=== PATIENT | female | born 1965 | race Two or more races ===

== ENCOUNTER 2025-04-18 15:35 | Emergency (ER) | payer MEDICAID, OTHER ==
[~2025-04-18] VITALS: Ht 157.5 cm; Wt 78.5 kg
--- NOTE | 2025-04-18 16:30 | ED.PDOC ---
Back pain HPI HPI Comments 60 y/o F, with PMHx of HTN and DM presents to the ED for CC musculoskeletal pain. Patient reports, to have been experiencing right leg pain that "shoots" up into her left lumbar region x3days. Patient relays, further associated symptoms of palpitations. Patient denies any prior cardiac history, bending, lifting, or trauma. No other symptoms or modifying factors are present at this time. Chief Complaint: Palpitations Time Seen by MD: 16:20 Reviewed Notes: Nurses Notes, Medications, Allergies Allergies: Coded Allergies: NO KNOWN ALLERGIES (Unverified , 04/18/25) Information Source: Patient Mode of Arrival: Ambulatory Timing: Days Duration: Since onset Location of Back pain: (L) Lumbar Severity: Moderate Prehospital treatment: None Quality: Other (shooting) Onset: Spontaneous Modifying Factors: Nothing Associated signs and symptoms: None Past Medical History PAST MEDICAL HISTORY: Asthma, DM Surgical History: Denies all surgeries CHAIRMAN AND CHIEF EXECUTIVE OFFICER History: Denies all CHAIRMAN AND CHIEF EXECUTIVE OFFICER Hx Family History Family History: Unknown Social History Smoker: Non-Smoker Alcohol: Denies ETOH Use Drugs: Denies Drug Use Lives In: Home Constitutional: denies: chills, diaphoresis, fatigue, fever, malaise, sweats, weakness, others EENTM: denies: blurred vision, double vision, ear bleeding, ear discharge, ear drainage, ear pain, ear ringing, eye pain, eye redness, hearing loss, mouth pain, mouth swelling, nasal discharge, nose bleeding, nose congestion, nose pain, photophobia, tearing, throat pain, throat swelling, voice changes, others Respiratory: denies: cough, hemoptysis, orthopnea, SOB at rest, shortness of breath, SOB with excertion, stridor, wheezing, others Cardiovascular: denies: chest pain, dizzy spells, diaphoresis, Dyspnea on exertion, edema, irregular heart beat, left arm pain, lightheadedness, palpitations, PND, syncope, others Gastrointestinal: denies: abdomen distended, abdominal pain, blood streaked bowels, constipated, diarrhea, dysphagia, difficulty swallowing, hematemesis, melena, nausea, poor appetite, poor fluid intake, rectal bleeding, rectal pain, vomiting, others Genitourinary: denies: abnormal vagina bleeding, burning, dyspareunia, dysuria, flank pain, frequency, hematuria, incontinence, pain, , vagina discharge, urgency, others Neurological: denies: dizziness, fainting, headache, left sided numbness, left sided weakness, numbness, paresthesia, pre-existing deficit, right sided numbness, right sided weakness, seizure, speech problems, tingling, tremors, weakness, others Musculoskeletal: reports: back pain, others (left-leg pain); denies: gout, joint pain, joint swelling, muscle pain, muscle stiffness, neck pain Integumetry: denies: bruises, change in color, change in hair/nails, dryness, laceration, lesions, lumps, rash, wounds, others Allergic/Immunocompromised: denies: Difficulty Healing, Frequent Infections, Hives, Itching, others Hematologic/Lymphatic: denies: anemia, blood clots, easy bleeding, easy bruising, swollen glands, others Endocrine: denies: excessive hunger, excessive sweating, excessive thirst, excessive urination, flushing, intolerance to cold, intolerance to heat, unexplained weight gain, unexplained weight loss, others Psychiatric: denies: anxiety, bipolar disorder, depression, hopeless, panic disorder, schizophrenia, sleepless, suicidal, others All Other Systems: Reviewed and Negative Physical Exam General Appearance: No Apparent Distress, Normal HEENT: Normal ENT Inspection, Pharynx Normal Neck: Full Range of Motion, Non-Tender, Normal, Normal Inspection Respiratory: Chest Non-Tender, Lungs Clear, No Accessory Muscle Use, No Respiratory Distress, Normal Breath Sounds Cardiovascular: No Edema, No Murmur, No Gallop, Normal Peripheral Pulses, Regular Rate/Rhythm Breast Exam: Deferred Gastrointestinal: No Organomegaly, Non Tender, No Pulsatile Mass, Normal Bowel Sounds, Soft Genitalia: Deferred Pelvic: Deferred Rectal: Deferred Extremities: No calf tenderness, Normal capillary refill, Normal inspection, Normal range of motion, Non-tender, No pedal edema Musculoskeletal : Location: Left Extremity Location: Back Apperance: Tenderness (tenderness to lumbar paraspinal muscles, ambulating without assistance ) Neurologic: Alert, rigging slinger II-XII nml as Tested, No Motor Deficits, Normal Affect, Normal Mood, No Sensory Deficits Cerebellar Function: Normal Reflexes: Normal Skin: Dry, Normal Color, Warm Lymphatic: No Adenopathy Was a procedure done? Was a procedure done?: No Back Pain Differential Dx Differential Diagnosis: Musculoskeletal Pain, Strain X-Ray, Labs, Meds, VS Vital Signs Date Time Temp Pulse Resp B/P (MAP) Pulse Ox O2 Delivery O2 Flow Rate FiO2 04/18/25 18:26 90 04/18/25 18:14 Room Air* 0 21 04/18/25 18:14 98.0 94 18 164/98 (120) 97 98.0 04/18/25 15:46 101 04/18/25 15:37 97.8 106 16 147/74 97 97.8 Lab Test 04/18/25 17:05 Range/Units White Blood Count 8.5 4.4-10.8 10^3/uL Red Blood Count 4.84 4.0-5.20 10^6/uL Hemoglobin 14.5 12.2-16.2 g/dL Hematocrit 43.6 36.0-46.0 % Mean Corpuscular Volume 90.0 80.0-100.0 fL Mean Corpuscular Hemoglobin 30.0 28.0-32.0 pg Mean Corpuscular Hemoglobin Concent 33.3 32.0-36.0 g/dL Red Cell Distribution Width 13.5 11.8-14.3 % Platelet Count 249 140-450 10^3/uL Mean Platelet Volume 9.2 6.9-10.8 fL Neutrophils (%) (Auto) 71.6 37.0-80.0 % Lymphocytes (%) (Auto) 22.2 10.0-50.0 % Monocytes (%) (Auto) 4.5 0.0-12.0 % Eosinophils (%) (Auto) 1.2 0.0-7.0 % Basophils (%) (Auto) 0.5 0.0-2.0 % Neutrophils # (Auto) 6.1 1.6-8.6 10 ^3/uL Lymphocytes # (Auto) 1.9 0.4-5.4 10 ^3/uL Monocytes # (Auto) 0.4 0-1.3 10 ^3/uL Eosinophils # (Auto) 0.1 0-0.8 10 ^3/uL Basophils # (Auto) 0 0-0.2 10 ^3/uL Nucleated Red Blood Cells 0.0 % Sodium Level 136 136-145 mmol/L Potassium Level 4.3 3.5-5.1 mmol/L Chloride Level 102 98-107 mmol/L Carbon Dioxide Level 24 20-31 mmol/L Anion Gap 10 5-15 Blood Urea Nitrogen 13 9-23 mg/dL Creatinine 0.77 0.550-1.02 mg/dL Glomerular Filtration Rate Calc 89 >90 mL/min BUN/Creatinine Ratio 16.9 10.0-20.0 Serum Glucose 477 *H 74-106 mg/dL Calcium Level 9.6 8.7-10.4 mg/dL Current Medications Medications (Trade) Dose Ordered Sig/Joana Route Start Time Stop Time Status Last Admin Ketorolac Tromethamine (Toradol Injection) 30 mg ONCE ONCE IM 04/18/25 16:45 04/18/25 16:46 DC 04/18/25 18:12 Methylprednisolone Sodium Succinate (Solu Medrol) 125 mg ONCE ONCE IM 04/18/25 16:45 04/18/25 16:46 DC 04/18/25 18:12 Sodium Chloride 1,000 ml @ 1,000 mls/hr Q1H ONCE IV 04/18/25 18:15 04/18/25 19:14 04/18/25 18:42 Insulin Human Regular (InsuLIN R) 12 units ONCE ONCE SC 04/18/25 18:15 04/18/25 18:21 DC 04/18/25 18:26 [place] [id number] Ph: [phone] DIAGNOSTIC IMAGING Diagnostic Imaging Report : [id number] Signed PATIENT: ALEC SCANLON ACCT: [id number] UNIT: [id number] : 1965 LOC: ER ROOM / BED: / AGE / SEX: 60 / F ADM STATUS: REG ER SERVICE [id number] ORDERING PHYSICIAN: KATJA FLORES PROCEDURE(s): LUMB2 - LUMBAR SPINE 3 VIEW REASON: back pain ORDER NUMBER(s): [id number], ACCESSION NUMBER(s): [id number] CLINICAL INDICATION: back pain TECHNIQUE: 3 radiographic views of the lumbar spine were obtained. Comparison: None FINDINGS/IMPRESSION: There are no compressed vertebra. Bony alignment is normal. There are no prior studies for comparison. ATED BY: JOSETTE CHRISTIE Jr. DO DICTATED DATE/TIME: 04/18/251722 SIGNED BY: JOSETTE CHRISTIE Jr., DO SIGNED DATE/TIME: 04/18/251722 CC: X-Ray, Labs, Meds, VS Comment Lumbar x-ray negative Patient has no signs of DKA Patient advised to follow up with PCP Time of 1ST Reevaluation: 16:50 Reevaluation 1ST: Unchanged Patient Education/Counseling: Diagnosis, Treatment, Need For Follow Up (Follow up with PCP next available appointment. Return to emergency department if symptoms worsen.) Family Education/Counseling: No Family Present SEPSIS Sepsis Screen Date sepsis recognized/suspect: Apr 18, 2025 Time Sepsis recognized/suspect: 1539 Recent Procedure: No On Antibiotic Therapy: No Respiratory Rate >20: No Heart Rate >90: Yes Temp<36 C (96.8 F) or >38.3 C: No SBP <90 or MAP <65 mmHG: No New Acute Mental Status Change: No Is the patient on CPAP, BIPAP,: No Physician Orders Urinalysis (04/18/25 16:36) Lumbar Spine 3 View (04/18/25 16:36) Sodium Chloride 0.9% (04/18/25 18:15) Vital Signs Date Time Temp Pulse Resp B/P (MAP) Pulse Ox O2 Delivery O2 Flow Rate FiO2 04/18/25 18:26 90 04/18/25 18:14 Room Air* 0 21 04/18/25 18:14 98.0 94 18 164/98 (120) 97 98.0 04/18/25 15:46 101 04/18/25 15:37 97.8 106 16 147/74 97 97.8 Laboratory Tests Test 04/18/25 17:05 White Blood Count 8.5 10^3/uL (4.4-10.8) Medications Medications Dose Ordered Sig/Joana Route Start Time Stop Time Status Last Admin Dose Admin Insulin Human Regular 12 units ONCE ONCE SC 04/18/25 18:15 04/18/25 18:21 DC 04/18/25 18:26 Ketorolac Tromethamine 30 mg ONCE ONCE IM 04/18/25 16:45 04/18/25 16:46 DC 04/18/25 18:12 Methylprednisolone Sodium Succinate 125 mg ONCE ONCE IM 04/18/25 16:45 04/18/25 16:46 DC 04/18/25 18:12 Sodium Chloride 1,000 ml @ 1,000 mls/hr Q1H ONCE IV 04/18/25 18:15 04/18/25 19:14 04/18/25 18:42 Departure 1 Departure Time of Disposition: 19:08 Impression: Primary Impression: Hyperglycemia Additional Impressions: Neuropathy Diabetic neuropathy Qualified Codes: E11.41 - Type 2 diabetes mellitus with diabetic mononeuropathy Disposition: HOME / SELF CARE / HOMELESS Condition: Stable e-Prescriptions Gabapentin (Once-Daily) (Gabapentin) 300 Mg Tab 300 MG PO BID PRN, #40 TAB Prov: KATJA FLORESP 04/18/25 Discharged With: Self Critical Care Note Critical Care Time?: No Stability Stability form required: No Heart Score Heart Score: Heart Score Response (Comments) Value History N/A 0 EKG N/A 0 Age N/A 0 Risk Factors N/A 0 Troponin N/A 0 Total 0 I personally scribed for KATJA FLORES EMERGENCY ROOM CLINICIAN ([email or web address]) on 04/18/25 at 16:30. Electronically submitted by Janice Alba ([email or web address]). I personally scribed for KATJA FLORES EMERGENCY ROOM CLINICIAN ([email or web address]) on 04/18/25 at 18:41. Electronically submitted by Janice Alba ([email or web address]). KATJA FLORES EMERGENCY ROOM CLINICIAN Apr 18, 2025 16:30
[2025-04-18 17:17] LABS: Hematocrit 43.6 % (36.0-46.0); Hemoglobin 14.5 g/dL (12.2-16.2); Mean Corpuscular Hemoglobin 30.0 pg (28.0-32.0); Mean Corpuscular Volume 90.0 fL (80.0-100.0); Nucleated Red Blood Cells % 0.0 %
--- NOTE | 2025-04-18 17:26 | DVH ---
CLINICAL INDICATION: back pain TECHNIQUE: 3 radiographic views of the lumbar spine were obtained. Comparison: None FINDINGS/IMPRESSION: There are no compressed vertebra. Bony alignment is normal. There are no prior studies for comparison.
[2025-04-18 17:29] LABS: Chloride 102 mmol/L (98-107); Potassium 4.3 mmol/L (3.5-5.1)
[2025-04-18 17:30] LABS: Anion Gap 10 (5-15); Carbon Dioxide 24 mmol/L (20-31)
[2025-04-18 17:31] LABS: Calcium 9.6 mg/dL (8.7-10.4)
[2025-04-18 17:35] LABS: BUN/Creatinine Ratio 16.9 (10.0-20.0); Blood Urea Nitrogen 13 mg/dL (9-23)
[2025-04-18 17:38] LABS: Sodium 136 mmol/L (136-145)
--- NOTE | 2025-04-18 17:39 | ECG ---
[facility] Test Date: 2025-04-18 Test Time: 15:46:03 Pat Name: ALEC SCANLON Department: ED Room: Gender: F Pouncing Machine Operator: SHELIA : 1965 Requested By: KATJA FLORES Order Number: [id number] Reading MD: Jensen Deleon Measurements Intervals [place] Rate: 101 P: 56 VT: 145 QRS: 63 QRSD: 74 T: 30 QT: 344 QTc: 446 Interpretive Statements Sinus tachycardia Low voltage, precordial leads Electronically Signed On 04-19-2025 9:06:02 PDT by Jensen Deleon Please click the below link to view image of tracing.
[2025-04-18 17:40] LABS: Glucose 477 mg/dL (74-106)
[2025-04-18] MEDS: methylPREDNISolone SOD SUCC 125 MG/2 ML VL IM ONE (18:12)
[2025-04-18] MEDS: KETOROLAC TROMETH 30 MG/ML 1ML VIAL IM ONE (18:12)
[2025-04-18 18:14] VITALS: BP 164/98; RESP 18; TEMP 98; O2SAT 97
[2025-04-18 18:26] VITALS: PULSE 90
[2025-04-18] MEDS: InsuLIN REG 1unit/0.01ml Soln (100units/ml) SC ONE (18:26)
[2025-04-18] MEDS: SODIUM CHLORIDE 0.9% 1,000 ML IV ONE (18:42)
[2025-04-18] MEDS ORDERED: GABA300T4 PO (19:09)
[2025-04-18] MEDS ORDERED: METF-370 PO (20:11)
[2025-04-18] MEDS: GABAPENTIN 300 MG CAP PO ONE (20:20)
--- NOTE | 2025-04-20 09:33 | ECG ---
[facility] Test Date: 2025-04-18 Test Time: 18:26:16 Pat Name: ALEC SCANLON Department: ED Room: Gender: F Stapler Machine: trang : 1965 Requested By: KATJA FLORES Order Number: [id number] Reading MD: Measurements Intervals [place] Rate: 90 P: 70 TX: 147 QRS: 42 QRSD: 76 T: 15 QT: 365 QTc: 447 Interpretive Statements Sinus rhythm Low voltage, precordial leads Please click the below link to view image of tracing.
--- NOTE | 2025-04-20 09:33 | ECG ---
[facility] Test Date: 2025-04-18 Test Time: 16:38:20 Pat Name: ALEC SCANLON Department: ED Room: Gender: F Director Quality Systems: SHELIA : 1965 Requested By: KATJA FLORES Order Number: [id number] Reading MD: Measurements Intervals [place] Rate: 89 P: 71 SC: 147 QRS: 59 QRSD: 75 T: 26 QT: 362 QTc: 441 Interpretive Statements Sinus rhythm Low voltage, precordial leads Please click the below link to view image of tracing.
== END 2025-04-18 20:26 | disposition home or self-care (01) ==
LOC: ER 15:35
DX: E11.65 Type 2 diabetes mellitus with hyperglycemia (principal); G62.9 Polyneuropathy, unspecified; E11.40 Type 2 diabetes mellitus with diabetic neuropathy, unspecified; J45.909 Unspecified asthma, uncomplicated
CPT/HCPCS: 36415; 72100; 80048; 82947; 85025; 93005; 96360; 96372; 99285; J1815; J1885; J2919; J7030; 82962